=== PATIENT | female | born 1995 | race Caucasian/White ===

== ENCOUNTER 2019-09-07 07:31 | Emergency (ER) | payer OTHER ==
--- NOTE | 2019-09-07 07:54 | UC ---
Complaint Female HPI - HPI Summary HPI Summary: no prior urine cx in [facility] Last couple days dysuria, freq / urg. Progressively worse. No fever / chills. Currently on menstrual period. No abd / back pain, but + bladder discomfort nir with urination. No rash. No recent hx uti No vaginal d/c (other than on menses) - History Of Current Complaint Stated Complaint: POSSIBLE UTI Time Seen by Provider: 09/07/19 07:54 Hx Obtained From: Patient - Allergies/Home Medications Allergies/Adverse Reactions: Allergies Allergy/AdvReac Type Severity Reaction Status Date / Time No Known Allergies Allergy Verified 09/07/19 07:52 Home Medications: Home Medications Levothyroxine TAB* [Synthroid 25 MCG TAB*] 1 tab PO DAILY WITH MEAL 09/07/19 [ History Confirmed 09/07/19] PMH/Surg Hx/FS Hx/Imm Hx Previously Healthy: Yes - Family History Known Family History: Positive: None Review of Systems All Other Systems Reviewed And Are Negative: Yes Constitutional: Positive: Negative Skin: Positive: Negative Eyes: Positive: Negative ENT: Positive: Negative Respiratory: Positive: Negative Cardiovascular: Positive: Negative Gastrointestinal: Positive: Other - see hpi Genitourinary: Positive: Other - see hpi Motor: Positive: Negative Neurovascular: Positive: Negative Musculoskeletal: Positive: Negative Neurological/Mental Status: Positive: Negative Psychological: Positive: Negative Is Patient Immunocompromised?: No Physical Exam Triage Information Reviewed: Yes Appearance: Well-Appearing - looks tired but nad, Well-Nourished Vital Signs Reviewed: Yes Eye Exam: Normal ENT Exam: Normal - nad Neck exam: Normal - nad Respiratory Exam: Normal - RR normal, no dyspnea, no tachypnea Cardiovascular Exam: Normal Abdominal Exam: Normal - no cvat Abdomen Description: Positive: Nontender - except + mild tender bladder region Musculoskeletal Exam: Normal - gait steady, moves x 4 ext's Neurological Exam: Normal - nonfocal Psychological Exam: Normal - nad Skin Exam: Normal - nondiaphoretic no visible or reported rash Complaint Female Dx - Course Course Of Treatment: Reviewed urine dip Reviewed need to f/u pcp when not on period and uti sx resolved to ensure that blood has resolved Reviewed coa / tx plan. Questions as posed answered to the best of my ability. - Differential Dx/Diagnosis Provider Diagnosis: UTI (urinary tract infection) Discharge ED - Sign-Out/Discharge Documenting (check all that apply): Patient Departure All imaging exams completed and their final reports reviewed: No Studies - Discharge Plan Condition: Stable Disposition: HOME Patient Education Materials: Urinary Tract Infection in Women (ED) Referrals: No Primary Care Phys,NOPCP [Primary Care Provider] - Additional Instructions: Hydrate. Please make sure that you have a urine recheck (primary care physician) when your symptoms have resolved, to ensure that the blood has resolved. Please seek medical attention for worse or new problems. - Billing Disposition and Condition Condition: STABLE Disposition: Home
[2019-09-07 07:57] VITALS: BP 114/68
== END 2019-09-07 08:32 | disposition home or self-care (01) ==
LOC: UCEAST 07:31
DX: N39.0 Urinary tract infection, site not specified (principal)
CPT/HCPCS: 81003; 87077; 87086; 87186; 99202; G0463